=== PATIENT | male | born 1955 | race Two or more races ===

== ENCOUNTER 2022-06-09 18:41 | Emergency (ER) | payer MEDICAID ==
[~2022-06-09] VITALS: Ht 172.7 cm; Wt 80.3 kg
[2022-06-09] MEDS ORDERED: IOHEXOL 300 MG/ML 100ML BOTTLE IJ ONE (19:09)
[2022-06-10 00:26] VITALS: BP 136/70
[2022-06-10] MEDS ORDERED: CEPH-322 PO (02:19)
[2022-06-10] MEDS ORDERED: PERCOT PO (02:19)
== END 2022-06-10 02:23 | disposition home or self-care (01) ==
LOC: ER 18:41
DX: S71.112A Laceration without foreign body, left thigh, initial encounter (principal); R51.9 Headache, unspecified; R42 Dizziness and giddiness; Y08.09XA Assault by strike by other specified type of sport equipment, initial encounter; Y93.89 Activity, other specified; Y92.89 Other specified places as the place of occurrence of the external cause; Y99.8 Other external cause status
CPT/HCPCS: 70450; 72125; 73701; 74177; 99285; Q9967